=== PATIENT | female | born 1950 | race Caucasian/White ===

== ENCOUNTER → 2016-04-29 | Outpatient (CLI) | payer OTHER ==
--- NOTE | 2016-04-29 15:44 | DI ---
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 Previous Exam: None at this facility. Upright AP and lateral and upright lateral flexion and extension views are submitted. The C2 and C3 v ertebral bodies are fused both at the disc space as well as in the lateral masses and this may be con genital. There is an extensive amount of bone along the anterior margin of C2. There is mild disc spa ce narrowing at C3-4 with a normal disc space at C4-5. There is severe disc space narrowing at C7-T1. The patient is status post anterior fusions at C5-6 and C6-7 with placement of metallic spacers in t he former disc spaces, and these levels are transfixed with an anterior plate. The lateral masses of C5 and C6 are fused. There is a lucency between the margins of the metallic spacer at C6-7 and the re spective vertebral endplates. This lucency suggests there is motion at this level even though no inst ability is noted at C6-7 with flexion and extension. There is anterior subluxation of C3 on C4, and C 4 on C5 by approximately 1-2 mm. Both subluxations increase to 2-3 mm with flexion and both are reduc ed completely with extension. There is anterior subluxation of C7 on T1 by 1 mm and this does not luis nge with flexion and extension. C1 articulates normally with C2 and the occiput. Severe arthritic luis nges are noted in the zygapophyseal joints bilaterally at C3-4, C4-5, C6-7, and C7-T1. Severe arthrit ic changes are present in the uncovertebral joints bilaterally at C3-4 and C4-5. Prevertebral soft ti ssue planes are normal. There is osteoporosis. Readin. 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 2. Status post anterior fusions at C5-6 and C6-7 with placement of metallic spacers in the former di sc spaces and a metallic plate anteriorly between C5 and C7. Both lateral masses at C5-6 are fused, a nd the lateral masses between C6-7 are still patent. A lucency surrounds the metallic spacer at C6-7 suggesting there may be movement at this level that is not detected with flexion and extension maneuv ers. 3. In the neutral position, there are anterior subluxations of C3 on C4 and C4 on C5. The subluxatio ns increased with flexion and are reduced with extension indicating there is motion at both levels. 4. There is severe disc space narrowing at C7-T1 with anterior subluxation of C7 on T1 but there is no instability with flexion and extension.
--- NOTE | 2016-04-29 19:39 | DI ---
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 Previous Exam: None at this facility. Upright AP and lateral and upright lateral flexion and extension views are submitted. The patient is morbidly obese. This detracts from the overall quality and significantly limits the diagnostic qualit y of the exam with respect to fine detail structures. The vertebral bodies are of normal height and s ize. There is severe disc space narrowing at L3-4 and L4-5 with moderate narrowing at L1-2, L2-3, and L5-S1. There is a grade 1 spondylolisthesis at L4-5 and a minimal grade 1 spondylolisthesis at L5-S1 . No instability is noted with flexion and extension maneuvers. Severe degenerative arthritic changes are present in the apophyseal joints between L3-4 and L5-S1 bilaterally. Both SI joints are normal. Readin. The patient is morbidly obese and is to track from the overall technical quality of the study. 2. There is disc space narrowing at all lumbar levels with a grade 1 spondylolisthesis at L4-5 and a minimal grade 1 spondylolisthesis at L5-S1. No instability is present with flexion and extension man euvers. 3. Severe degenerative arthritic changes are present in the apophyseal joints between L3-4 and L5-S1 .
== END ==
LOC: MOB RAD 12:26
PROVIDERS: ATTEND Physician Assistant
DX: M47.26 Other spondylosis with radiculopathy, lumbar region (principal); M47.22 Other spondylosis with radiculopathy, cervical region; M48.06 Spinal stenosis, lumbar region; M43.17 Spondylolisthesis, lumbosacral region; Z98.1 Arthrodesis status
CPT/HCPCS: 72050; 72110; 72141

== ENCOUNTER → 2016-04-29 | Outpatient (CLI) | payer OTHER ==
--- NOTE | 2016-04-29 19:31 | DI ---
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 Previous Exam: None. Sequences: Sagittal T1and T2 weighted. Axial T2 PLUS and FE 3D DUAL. Coronal T1 scans through the upp er cervical spine. 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 The patient is status post anterior fusions at C5-6 and C6-7 and the fusion is probably have been performed with metallic implants in the disc spaces. The disc s paces at C3-4 and C4-5 are normal in height and show desiccation change. There is severe disc space n arrowing at C7-T1 with desiccation change. The cervical cord is normal. There is cerebellar atrophy. There is no canal or neural foraminal stenosis at C2-3. C3-4 has a bulging but not herniated disc wit hout canal or neural foraminal stenosis. C4-5 has a bulging but not herniated disc with left neural f oraminal stenosis. There is no canal or right neural foraminal stenosis. C5-6 and C6-7 has scan artif acts but no canal or neural foraminal stenosis is identified. C7-T1 shows anterior subluxation of C7 on T1 with a bulging but not herniated disc. The AP diameter of the canal is at the lower limits of n ormal. There is bilateral neural foraminal stenosis. T1-2 through T4-5 disc spaces have minimally bul ging but not herniated discs without canal or neural foraminal stenosis. Readin. Status post anterior fusions at C5-6 and C6-7. There is no canal or neural foraminal stenosis. 2. There is anterior subluxation of C7 on T1 with a bulging disc producing an AP diameter of the can al at the lower limits of normal. There is bilateral neural foraminal stenosis. 3. There are bulging but not herniated discs without canal or neural foraminal stenosis at C3-4, C4- 5, and T1-2 through T4-5. 4. Congenital fusion of C2 and C3 without canal or neural foraminal stenosis.
== END ==
LOC: MOB RAD 13:52
PROVIDERS: ATTEND Physician Assistant
DX: M47.22 Other spondylosis with radiculopathy, cervical region (principal); M99.51 Intervertebral disc stenosis of neural canal of cervical region
CPT/HCPCS: 72141

== ENCOUNTER → 2016-05-03 | Outpatient (CLI) | payer OTHER ==
--- NOTE | 2016-05-03 14:23 | DI ---
MRI THORACIC SPINE SCAN, 05/03/2016 10:05 AM: Clinical History: Thoracic radiculopathy. Previous Exam: None. Technique: Sagittal T1 and T2 weighted and STIR scans are supplemented with an axial tT1 and T2 weigh gosia scans between T1-2 through the mid body of L1. The vertebral bodies are of normal height and size. There is severe disc space narrowing between T9-1 0 through T11-12. The remaining disc spaces are of normal height. Desiccation changes are present at all levels but most severely between T9-10 through T11-12 The thoracic cord and the conus medullaris are normal. T1-2 through T5-6 have minimally central bulging but not herniated discs without canal or neural foraminal stenosis. T6-7 through T11-12 have more prominent circumferentially bulging but not herniated discs. These levels show no canal or neural foraminal stenosis. The L1-2 through L3-4 disc spaces are normal. There are no other extradural lesions. There are no intradural extramedullary or intramedullary lesions. Readin. There are bulging but not herniated discs without canal or neural foraminal stenosis from T1-2 th rough T11-12. 2. The L1-2 through L3-4 disc spaces are normal.
== END ==
LOC: MRI 09:58
PROVIDERS: ATTEND Physician Assistant
DX: M54.14 Radiculopathy, thoracic region (principal); M47.814 Spondylosis without myelopathy or radiculopathy, thoracic region
CPT/HCPCS: 72146

== ENCOUNTER → 2016-06-10 | Outpatient (CLI) | payer OTHER | LOC: MMPC 09:00 | PROVIDERS: ATTEND Family Medicine | DX: G62.9 Polyneuropathy, unspecified (principal); M54.6 Pain in thoracic spine; M54.2 Cervicalgia; I10 Essential (primary) hypertension; R73.09 Other abnormal glucose; Z86.2 Personal history of diseases of the blood and blood-forming organs and certain disorders involving the immune mechanism | CPT/HCPCS: 99213; G0463 ==

== ENCOUNTER → 2016-09-10 | Outpatient (CLI) | payer OTHER ==
[2016-09-10 11:13] LABS: BASOPHILS # (AUTO) 0.04 10*3/UL; BASOPHILS % (AUTO) 0.6 % (0-1); EOSINOPHILS # (AUTO) 0.24 10*3/UL; EOSINOPHILS % (AUTO) 3.7 % (0-8); HEMATOCRIT 39.9 % (37.0-47.0); HEMOGLOBIN 12.7 g/dL (12.0-16.0); LYMPHOCYTES # (AUTO) 1.77 10*3/uL; MEAN CORPUSCULAR HEMOGLOBIN 28.1 PG (27-31); MEAN CORPUSCULAR HGB CONC 31.8 g/dL (33-37); MEAN CORPUSCULAR VOLUME 88.3 FL (81-99); MEAN PLATELET VOLUME 10.6 FL (7.4-12.2); MONOCYTES # (AUTO) 0.67 10*3/UL (0.3-0.8); MONOCYTES % (AUTO) 10.3 % (5-15); NEUTROPHILS # (AUTO) 3.77 10*3/UL; RED BLOOD COUNT 4.52 10^6/uL (4.20-5.40)
[2016-09-10 11:19] LABS: BLOOD UREA NITROGEN 28 mg/dL (7-22); BUN/CREATININE RATIO 31.11 (6-20); CHOL/HDL RATIO 3.85 RATIO (0-4.0); EST GLOMERULAR FILTRATION > 60 (>60 ml/min/1.73m(2)); HDL CHOLESTEROL 55 mg/dL (40-150); MAGNESIUM 2.3 mg/dL (1.6-2.4); SERUM ALBUMIN 4.7 g/dL (3.5-4.8); SERUM CHOLESTEROL 212 mg/dL (120-200); URIC ACID 4.1 mg/dl (2.5-7.5)
[2016-09-10 11:21] LABS: PLATELET MORPHOLOGY COMMENT NORMAL MORPHOLOGY (NORM); RBC MORPHOLOGY COMMENT NORMAL MORPHOLOGY (NORM); WBC MORPHOLOGY COMMENT NORMAL MORPHOLOGY (NORM)
[2016-09-10 11:34] LABS: FREE T4 (FREE THYROXINE) 1.22 ng/dL (0.93-1.71)
[2016-09-10 11:54] LABS: HEMOGLOBIN A1C 5.44 % (4.2-6.0)
[2016-09-10 13:17] LABS: ERYTHROCYTE SEDIMENTATION RATE 18 MM/HR (0-20)
== END ==
LOC: MOB LAB 09:25
PROVIDERS: ATTEND Family Medicine
DX: I10 Essential (primary) hypertension (principal); G62.9 Polyneuropathy, unspecified; R53.82 Chronic fatigue, unspecified; G89.29 Other chronic pain; D64.9 Anemia, unspecified; N93.9 Abnormal uterine and vaginal bleeding, unspecified; L29.2 Pruritus vulvae; R73.9 Hyperglycemia, unspecified; Z79.890 Hormone replacement therapy; Z86.2 Personal history of diseases of the blood and blood-forming organs and certain disorders involving the immune mechanism
CPT/HCPCS: 36415; 80053; 80061; 82306; 82607; 83036; 83735; 84439; 84443; 84550; 85025; 85652; 86803; 99214; G0463

== ENCOUNTER → 2016-09-21 | Outpatient (CLI) | payer OTHER ==
[2016-09-21 11:32] LABS: CLARITY,URINE CLEAR (CLEAR); COLOR,URINE YELLOW; PH,URINE 5.5 (5.0-8.5); URINE SAMPLE TYPE CLEAN CATCH URINE
[2016-09-21 11:33] LABS: BILIRUBIN,URINE NEGATIVE (NEG); GLUCOSE, URINE (UA) NEGATIVE (NEG); NITRATE,URINE NEGATIVE (NEG); OCCULT BLOOD,URINE NEGATIVE (NEG); PROTEIN,URINE NEGATIVE (NEG); UROBILINOGEN,URINE 0.2 mg/dL (0.2)
[2016-09-21 11:35] LABS: BACTERIA,URINE RARE; RBC,URINE 0-1 /hpf; SQUAMOUS EPITHELIAL CELL,UR RARE; WBC,URINE 0-1
== END ==
LOC: MOB LAB 10:04
PROVIDERS: ATTEND Obstetrics & Gynecology
DX: N39.41 Urge incontinence (principal); L29.2 Pruritus vulvae; B37.2 Candidiasis of skin and nail; N81.10 Cystocele, unspecified; R22.2 Localized swelling, mass and lump, trunk; E66.01 Morbid (severe) obesity due to excess calories; Z68.43 Body mass index [BMI] 50.0-59.9, adult; N93.8 Other specified abnormal uterine and vaginal bleeding; L90.5 Scar conditions and fibrosis of skin; Z87.448 Personal history of other diseases of urinary system
CPT/HCPCS: 81001

== ENCOUNTER → 2016-10-06 | Outpatient (CLI) | payer OTHER ==
--- NOTE | 2016-10-06 11:46 | DI ---
PELVIC ULTRASOUND, 10/06/2016 8:32 AM Clinical History: Recent vaginal bleeding. Morbid obesity with a BMI between 50-59.9, precluding asse ssment of the ovaries. Previous Exam: None at this facility. Technique: Transabdominal and transvaginal scans are performed. The patient is status post hysterectomy. Neither ovary could be identified either with the transabdom inal or the transvaginal approach. There are no fluid collections or masses. Readin. The patient is status post hysterectomy. The ovaries could not be identified either with the garcia sabdominal or transvaginal approach. 2. There is no free fluid collection or mass.
--- NOTE | 2016-10-07 18:05 | DI ---
RIGHT BREAST ULTRASOUND, 10/06/2016 8:33 AM: Clinical History: Palpable mass in the right axilla. The screening mammograms performed today are neg ative. Scans are performed by the technologist while I was present through all four quadrants of the right b reast with the high resolution linear array probe as well as in the axilla. Color Doppler ultrasound was also performed. Scans reveal no solid or cystic mass in the breast. Scans are performed in the right axilla over the tender and palpable mass and this corresponds to an enlarged soft tissue mass measuring approximately 15 x 20 x 30 mm that shows hypervascularity and has areas of hypoechogenicity with an eccentric fatt y hilum. The perimeter of the lesion is echogenic. This nodule is consistent with an enlarged and pro bably inflamed lymph node. There is a smaller similar appearing lymph node immediately adjacent to th is enlarged lymph node. No other solid or cystic lesion is identified in the axilla. Follow Up: Monitoring of this lesion is recommended clinically. If it does not resolve in the next 2- 3 weeks, then consider excisional biopsy. BIRADS Category: 1. Negative with respect to the breast. Assessment: Negative. The lesion in the right axilla is consistent with an inflamed and enlarged lymph node. See above for followup.
== END ==
LOC: US 08:23
PROVIDERS: ATTEND Obstetrics & Gynecology
DX: R22.31 Localized swelling, mass and lump, right upper limb (principal); L90.5 Scar conditions and fibrosis of skin; N95.0 Postmenopausal bleeding; Z68.43 Body mass index [BMI] 50.0-59.9, adult; Z90.710 Acquired absence of both cervix and uterus
CPT/HCPCS: 76641; 76830; 76856